=== PATIENT | female | born 1980 | race Caucasian/White ===

== ENCOUNTER 2016-06-18 06:17 | Emergency (ER) | payer OTHER ==
[2016-06-18 07:05] LABS: HEMOGLOBIN 12.9 gm/dl (12.3-15.3); RED BLOOD COUNT 4.93 M/UL (4.00-5.10); WHITE BLOOD COUNT 6.8 K/UL (4.5-11.0)
[2016-06-18 07:24] LABS: BUN/CREATININE RATIO 15 (0-10)
[2016-06-26] MEDS ORDERED: LISINOPRIL40 MG PO (12:12)
[2016-06-26] MEDS ORDERED: CEFUROXIME500 MG PO (12:12)
[2016-06-26] MEDS ORDERED: DICYCLOMINE HCL20 MG PO (12:13)
[2016-06-26] MEDS ORDERED: HYDROCODON-ACE1 EAC2 PO (18:23)
[2016-06-26] MEDS ORDERED: COLACE 100MG C100 MG PO (18:23)
== END 2016-06-18 12:40 | disposition home or self-care (01) ==
LOC: ER1 06:17
PROVIDERS: Emergency Medicine
DX: K80.70 Calculus of gallbladder and bile duct without cholecystitis without obstruction (principal); N39.0 Urinary tract infection, site not specified; I10 Essential (primary) hypertension
CPT/HCPCS: 36415; 76705; 80053; 81001; 82150; 83690; 84703; 85025; 87086; 99284; J2270; J2405; J7050; Q9962

== ENCOUNTER → 2016-06-23 | Outpatient (CLI) | payer OTHER ==
[~2016-06-23] MED LIST: CEFUROXIME500 MG PO; COLACE 100MG C100 MG PO; DICYCLOMINE HCL20 MG PO; HYDROCODON-ACE1 EAC2 PO; LISINOPRIL40 MG PO
== END ==
LOC: OPSV2 09:42
DX: Z01.810 Encounter for preprocedural cardiovascular examination (principal); K80.20 Calculus of gallbladder without cholecystitis without obstruction; R94.31 Abnormal electrocardiogram [ECG] [EKG]
CPT/HCPCS: 93005

== ENCOUNTER → 2016-06-26 | Day surgery (SDC) | payer OTHER | END | disposition home or self-care (01) | LOC: OR 11:38 | PROVIDERS: Surgery | PROC: BF03YZZ Plain Radiography of Gallbladder and Bile Ducts using Other Contrast (ICD-10-PCS; 2016-06-26) | PROC: 0FT44ZZ Resection of Gallbladder, Percutaneous Endoscopic Approach (ICD-10-PCS; principal; 2016-06-26 13:00) | DX: K80.00 Calculus of gallbladder with acute cholecystitis without obstruction (principal); I10 Essential (primary) hypertension; Z79.899 Other long term (current) drug therapy; Z87.440 Personal history of urinary (tract) infections | CPT/HCPCS: 36415; 47531; 84703; J0690; J1200; J2250; J2270; J2405; J2710; J3010; J7030; J7120; Q9962 ==